=== PATIENT | female | born 1930 | race Caucasian/White ===

== ENCOUNTER 2017-09-03 16:40 | Emergency (ER) | payer OTHER ==
[~2017-09-03] VITALS: Ht 152.4 cm; Wt 53.3 kg
[~2017-09-03 16:40] MED LIST: CARBIDOPA-LEVO1 EAC8 PO; CARBIDOPA/LEVO1 EACH PO; CLONAZEPAM0.5 MG PO; COMTAN200 MG PO; DEBROX15 ML RIGHT EAR; DUONEB 2.5-0.5 M3 ML IH; ENTACAPONE200 MG PO; ESCITALOPRAM OX10 MG PO; FLEET ENEMA-AD118 ML PR; KLONOPIN0.5 M1 PO; LEXAPRO10 MG PO; MIRALAX17 GM PO; NITROFURANTOIN50 MG PO; PREVACID30 MG PO; PROAIR HFA8.5 GM IH; PROBIOTIC1 EAC1 PO; SERTRALINE HCL25 MG PO; SINEMET 25-1001 EACH PO; SINEMET CR 50-1 EACH PO; VITAMIN D2000 UNIT PO; ZOLOFT25 MG PO
[2017-09-03 17:21] LABS: BASOPHIL (%) 0.5 % (0-1); BASOPHIL COUNT 0.1 K/uL (0-0.1); EOSINOPHIL (%) 0.9 % (0-5); EOSINOPHIL COUNT 0.1 K/uL (0-0.3); HEMATOCRIT 38.8 % (36.0-46.0); HEMOGLOBIN 12.9 G/DL (11.9-15.5); IMMATURE GRANULOCYTE (%) 0.5 % (0.0-0.7); LYMPHOCYTE COUNT 1.3 K/uL (1.0-2.8); MCH 33.1 PG (29.0-34.0); MCHC 33.2 G/DL (30.0-36.0); MCV 99.5 FL (83-99); NEUTROPHIL (%) 79.1 % (45-76); NEUTROPHIL COUNT 9.5 K/uL (1.8-6.4); PLATELET COUNT 277 K/uL (156-360); RBC DIS.WIDTH-CV 13.2 % (11.8-14.6); RBC DIS.WIDTH-SD 49.1 % (39-53)
[2017-09-03 17:29] LABS: INTER. NORMALIZED RATIO 1.3
[2017-09-03 17:30] LABS: ALBUMIN 3.9 g/dL (3.2-4.8); CHLORIDE 103 mEq/L (99-109); POTASSIUM 3.7 mEq/L (3.7-5.4); SODIUM 143 mEq/L (136-147)
[2017-09-03 17:31] LABS: MAGNESIUM 1.9 mg/dL (1.3-2.7)
[2017-09-03 17:32] LABS: PTT 28.1 SEC (25-37)
[2017-09-03 17:33] LABS: GLUCOSE 127 mg/dL (70-99); TOTAL PROTEIN 7.1 g/dL (6.4-8.3)
[2017-09-03 17:35] LABS: TOTAL BILIRUBIN 0.4 mg/dL (0.0-1.0)
[2017-09-03 17:36] LABS: ALKALINE PHOSPHATASE 61 IU/L (3-129); CREATININE 0.7 mg/dL (0.6-1.3); GFR ESTIMATE (CALCULATED) > 59 mL/min/
[2017-09-03 17:37] LABS: UREA NITROGEN (BUN) 16 mg/dL (9-23)
[2017-09-03 17:38] LABS: AST (GOT) 13 IU/L (2-34)
[2017-09-03 17:39] LABS: ALT (GPT) < 3 IU/L (3-49)
[2017-09-03 17:43] LABS: TROP-I INTERPRETATION NEGATIVE; TROPONIN-I 0.02 ng/mL (0.0-0.30)
[2017-09-03] MEDS ORDERED: MIRALAX17 GM PO (18:18)
[2017-09-03] MEDS ORDERED: CULTURELLE CAP1 EACH PO (18:21)
[2017-09-03] MEDS ORDERED: NEUPRO1 EACH TD (18:22)
[2017-09-03] MEDS ORDERED: REMERON15 M2 PO (18:22)
[2017-09-03] MEDS ORDERED: EXELON1.5 MG PO (18:23)
[2017-09-03] MEDS ORDERED: ZOLOFT100 MG PO (18:24)
[2017-09-03] MEDS ORDERED: SEROQUEL50 MG PO (18:24)
[2017-09-03] MEDS ORDERED: ANORO ELLIPTA1 EACH IH (18:25)
[2017-09-03] MEDS ORDERED: ALBUTEROL0.63 MG/3 IH (18:26)
[2017-09-03] MEDS ORDERED: ZOFRAN8 MG PO (18:26)
[2017-09-03] MEDS ORDERED: ADVIL200 MG PO (18:27)
[2017-09-03] MEDS ORDERED: VITAMIN D31000 UNI2 PO (18:28)
[2017-09-03 21:11] LABS: APPEARANCE CLOUDY ((CLEAR)); BILIRUBIN NEGATIVE; BLOOD MODERATE; COLOR YELLOW ((YELLOW)); GLUCOSE (STRIP) NEGATIVE; KETONES 5; LEUKOCYTES LARGE; NITRITE NEGATIVE; PROTEIN (STRIP) 100; SPECIFIC GRAVITY 1.026 (1.000-1.030)
[2017-09-03 21:23] LABS: BACTERIA NONE SEEN /HPF; CALCIUM OXALATE CRYSTALS 3+ /HPF; EPITHELIAL CELLS 1+ /HPF; HYALINE CASTS 20-30 /LPF; MUCUS 3+ /LPF; RED BLOOD CELLS 30-40 /HPF (0-5); UCUL ADDED? YES; WHITE BLOOD CELLS TNTC /HPF (0-5)
[2017-09-03] MEDS ORDERED: CIPRO500 MG PO (21:26)
[2017-09-04 01:15] VITALS: BP 97/62
== END 2017-09-04 01:21 | disposition home or self-care (01) ==
LOC: EME 16:40
PROVIDERS: Emergency Medicine
PROC: 0T9B70Z Drainage of Bladder with Drainage Device, Via Natural or Artificial Opening (ICD-10-PCS; principal; 2017-09-03)
DX: N39.0 Urinary tract infection, site not specified (principal); E86.0 Dehydration; F03.90 Unspecified dementia, unspecified severity, without behavioral disturbance, psychotic disturbance, mood disturbance, and anxiety; G20 Parkinson's disease; I44.7 Left bundle-branch block, unspecified; Z87.442 Personal history of urinary calculi; Z88.0 Allergy status to penicillin; Z88.2 Allergy status to sulfonamides; J44.9 Chronic obstructive pulmonary disease, unspecified; Z90.49 Acquired absence of other specified parts of digestive tract; Z87.891 Personal history of nicotine dependence
CPT/HCPCS: 71250; 74176; 80053; 81003; 83735; 83880; 84484; 85025; 85610; 85730; 87077; 87086; 87186; 93005; 99281; 99285; J0696; J2060; J3475; J7040; J7120; J7644

== ENCOUNTER 2017-10-07 09:46 | Emergency (ER) | payer OTHER ==
[~2017-10-07] VITALS: Ht 152.4 cm; Wt 51.0 kg
[~2017-10-07 09:46] MED LIST changes: +ADVIL200 MG PO; +ALBUTEROL0.63 MG/3 IH; +ANORO ELLIPTA1 EACH IH; +CIPRO500 MG PO; +CULTURELLE CAP1 EACH PO; +EXELON1.5 MG PO; +NEUPRO1 EACH TD; +REMERON15 M2 PO; +SEROQUEL50 MG PO; +VITAMIN D31000 UNI2 PO; +ZOFRAN8 MG PO; +ZOLOFT100 MG PO
[2017-10-07 10:36] LABS: BASOPHIL (%) 0.5 % (0-1); BASOPHIL COUNT 0.1 K/uL (0-0.1); EOSINOPHIL (%) 0.7 % (0-5); EOSINOPHIL COUNT 0.1 K/uL (0-0.3); HEMATOCRIT 36.4 % (36.0-46.0); HEMOGLOBIN 11.9 G/DL (11.9-15.5); IMMATURE GRANULOCYTE (%) 0.9 % (0.0-0.7); LYMPHOCYTE (%) 9.6 % (15-42); LYMPHOCYTE COUNT 1.4 K/uL (1.0-2.8); MCH 32.7 PG (29.0-34.0); MCHC 32.7 G/DL (30.0-36.0); MONOCYTE (%) 5.4 % (3-12); MONOCYTE COUNT 0.8 K/uL (0-0.8); NEUTROPHIL (%) 82.9 % (45-76); PLATELET COUNT 315 K/uL (156-360); RBC DIS.WIDTH-CV 14.1 % (11.8-14.6); RBC DIS.WIDTH-SD 51.8 % (39-53); RED BLOOD COUNT 3.64 M/uL (3.80-5.20); WHITE BLOOD COUNT 14.5 K/uL (4.1-10.2)
[2017-10-07 10:46] LABS: CHLORIDE 109 mEq/L (99-109); POTASSIUM 4.1 mEq/L (3.7-5.4); SODIUM 143 mEq/L (136-147)
[2017-10-07 10:48] LABS: GLUCOSE 94 mg/dL (70-99)
[2017-10-07 10:52] LABS: CREATININE 0.7 mg/dL (0.6-1.3); GFR ESTIMATE (CALCULATED) > 59 mL/min/; UREA NITROGEN (BUN) 23 mg/dL (9-23)
[2017-10-07] MEDS ORDERED: TYLENOL WITH C1 EACH PO (11:45)
[2017-10-07 12:58] VITALS: BP 155/78
== END 2017-10-07 12:59 | disposition home or self-care (01) ==
LOC: EME 09:46
PROVIDERS: Emergency Medicine
DX: S32.019A Unspecified fracture of first lumbar vertebra, initial encounter for closed fracture (principal); R51 Headache; M25.512 Pain in left shoulder; R07.9 Chest pain, unspecified; W06.XXXA Fall from bed, initial encounter; R06.02 Shortness of breath; M48.061 Spinal stenosis, lumbar region without neurogenic claudication; J44.9 Chronic obstructive pulmonary disease, unspecified; G20 Parkinson's disease; F03.90 Unspecified dementia, unspecified severity, without behavioral disturbance, psychotic disturbance, mood disturbance, and anxiety; Z87.442 Personal history of urinary calculi; Z88.0 Allergy status to penicillin; Z88.2 Allergy status to sulfonamides; Z90.710 Acquired absence of both cervix and uterus; Z87.891 Personal history of nicotine dependence
CPT/HCPCS: 70450; 71045; 72131; 80048; 85025; 94640; 99281; 99285